=== PATIENT | female | born 1960 | race Asian ===

== ENCOUNTER → 2023-08-30 17:35 | Outpatient (REF) | payer OTHER, SELFPAY | LOC: WDC 17:35 | PROVIDERS: ATTENDING PHYSICIAN Student in an Organized Health Care Education/Training Program; REFERRING PHYSICIAN Obstetrics & Gynecology | DX: Z12.31 Encounter for screening mammogram for malignant neoplasm of breast (principal) | CPT/HCPCS: 77063; 77067 ==